=== PATIENT | male | born 1960 | race Caucasian/White ===

== ENCOUNTER → 2023-11-03 07:51 | Outpatient (REF) | payer MEDICARE, SELFPAY ==
[2023-11-03 09:09] LABS: % Basophils 1.4 % (0-2); % Eosinophils 18.3 % (0-6); % Immature Granulocytes 0.4 % (0-0.5); % Lymphocytes 26.4 % (20.5-51.1); % Monocytes 9.9 % (1.7-9.3); % Neutrophils 43.6 % (42.2-75.2); Absolute Basophils 0.1 10^3/uL (0-0.2); Absolute Eosinophils 0.9 10^3/uL (0-0.7); Absolute Lymphocytes 1.3 10^3/uL (1.2-3.4); Absolute Monocytes 0.5 10^3/uL (0.1-0.6); Absolute Neutrophils 2.2 10^3/uL (1.4-6.5); Hematocrit 44.2 % (39.0-52.0); Hemoglobin 15.1 g/dL (13.0-18.0); Mean Corp Hgb Conc. 34.2 g/dL (33.0-37.0); Mean Corpuscular Hgb 29.9 pg (27.0-31.0); Mean Corpuscular Volume 87.5 fL (80.0-94.0); Mean Platelet Volume 10.3 fL (7.4-10.4); Nucleated Red Blood Cells % 0 % (-); Platelet Count 255 10^3/uL (130-400); Red Blood Cell Count 5.05 10^6/uL (4.70-6.10); Red Cell Dist. Width 12.6 % (11.5-14.5); White Blood Cell Count 4.9 10^3/uL (4.8-10.8)
[2023-11-03 11:11] LABS: Blood Urea Nitrogen 29 mg/dl (9-20); Calcium 9.8 mg/dl (8.4-10.2); Carbon Dioxide 28 mmol/L (22-30); Chloride 103 mmol/L (98-107); Glucose 86 mg/dl (70-99); Potassium 4.8 mmol/L (3.5-5.1); Sodium 138 mmol/L (135-145); eGFR > 60.00
== END ==
LOC: SDSPAT 07:51
PROVIDERS: ATTENDING PHYSICIAN Orthopaedic Surgery Hand Surgery; FAMILY PHYSICIAN Family Medicine
DX: Z01.818 Encounter for other preprocedural examination (principal)
CPT/HCPCS: 36415; 80048; 85025; 93005

== ENCOUNTER 2023-11-15 06:26 | Day surgery (SDC) | payer MEDICARE, SELFPAY ==
[2023-11-03 13:15] VITALS: BMI 28.1
[2023-11-15] VITALS (13 sets, daily range): BP systolic 98–115; BP diastolic 69–83; BMI 28.1
[2023-11-15] MEDS: TYLENOL 1000 MG PO (08:39)
[2023-11-15] MEDS: CELEBREX 200 MG PO (08:39)
[2023-11-15] MEDS: NORMOSOL-R 1000 IV (08:39)
[2023-11-15] MEDS: DILAUDID 0.5 MG IV ×2 (13:18→13:30)
[2023-11-15] MEDS: DILAUDID 0.25 MG IV ×2 (13:48→14:03)
--- NOTE | 2023-11-15 13:51 | SUR.PHASEI ---
Patient having 'severe' pain in back of rt shoulder, '03/14' despite nerve block. Jennifer Berg RN BSN.
== END 2023-11-15 16:15 | disposition home or self-care (01) ==
LOC: SDS 06:26
PROVIDERS: ATTENDING PHYSICIAN Orthopaedic Surgery Hand Surgery; FAMILY PHYSICIAN Family Medicine
DX: M75.121 Complete rotator cuff tear or rupture of right shoulder, not specified as traumatic (principal); M19.011 Primary osteoarthritis, right shoulder; M75.41 Impingement syndrome of right shoulder; Z87.39 Personal history of other diseases of the musculoskeletal system and connective tissue
CPT/HCPCS: 29827; 29826; C1713

== ENCOUNTER 2024-10-19 06:22 | Day surgery (SDC) | payer MEDICARE, SELFPAY | END 2024-10-19 14:12 | disposition home or self-care (01) | LOC: GI 06:22 | PROVIDERS: ATTENDING PHYSICIAN Internal Medicine Gastroenterology | DX: Z12.11 Encounter for screening for malignant neoplasm of colon (principal); K63.5 Polyp of colon; K57.30 Diverticulosis of large intestine without perforation or abscess without bleeding; K64.8 Other hemorrhoids; K22.89 Other specified disease of esophagus; K44.9 Diaphragmatic hernia without obstruction or gangrene; K31.7 Polyp of stomach and duodenum; R13.14 Dysphagia, pharyngoesophageal phase; Z83.719 Family history of colon polyps, unspecified | CPT/HCPCS: 45385; 43239; 88305 ==

== ENCOUNTER → 2024-11-12 10:41 | Outpatient (REF) | payer MEDICARE, SELFPAY | LOC: RAD 10:41 | PROVIDERS: ATTENDING PHYSICIAN Internal Medicine Gastroenterology; FAMILY PHYSICIAN Family Medicine | DX: R13.19 Other dysphagia (principal) | CPT/HCPCS: 74221 ==